=== PATIENT | female | born 1945 | race Two or more races ===

== ENCOUNTER 2018-09-13 08:04 | Outpatient (CLI) | payer OTHER | END 2018-09-13 11:20 | disposition home or self-care (01) | LOC: RAD 08:04 | DX: N20.0 Calculus of kidney (principal) ==

== ENCOUNTER 2018-09-24 11:45 | Inpatient (IN) | payer OTHER ==
[~2018-09-24] VITALS: Ht 152.4 cm; Wt 60.8 kg
[2018-09-24] MEDS ORDERED: LOTREL 5-40 MG1 EACH PO (12:26)
[2018-09-24] MEDS ORDERED: FUSION PLUS CA1 EACH PO (12:26)
[2018-09-24] MEDS ORDERED: KEFLEX500 MG PO (12:26)
== END 2018-09-28 10:58 | disposition home or self-care (01) | DRG 661 ==
LOC: SURH 11:45 → SURG 09-26 08:25 → O/R 09-26 08:25 → SURH 09-26 11:45 → SURG 09-26 16:44
PROVIDERS: ADMIT Urology
PROC: 0T778DZ Dilation of Left Ureter with Intraluminal Device, Via Natural or Artificial Opening Endoscopic (ICD-10-PCS; 2018-09-26)
PROC: BT1FZZZ Fluoroscopy of Left Kidney, Ureter and Bladder (ICD-10-PCS; 2018-09-26)
PROC: 0TC18ZZ Extirpation of Matter from Left Kidney, Via Natural or Artificial Opening Endoscopic (ICD-10-PCS; principal; 2018-09-26 07:00)
PROC: BT12ZZZ Fluoroscopy of Left Kidney (ICD-10-PCS; 2018-09-28)
DX: N20.0 Calculus of kidney (principal); E11.9 Type 2 diabetes mellitus without complications; Z79.4 Long term (current) use of insulin

== ENCOUNTER 2018-10-05 08:16 | Outpatient (CLI) | payer OTHER ==
[~2018-10-05 08:16] MED LIST: FUSION PLUS CA1 EACH PO; KEFLEX500 MG PO; LOTREL 5-40 MG1 EACH PO
== END 2018-10-05 08:50 | disposition home or self-care (01) ==
LOC: RAD 501 08:16
DX: N20.0 Calculus of kidney (principal)